=== PATIENT | male | born 1985 | race Two or more races ===

== ENCOUNTER 2021-09-15 21:22 | Emergency (ER) | payer OTHER ==
[2021-09-15 21:40] VITALS: BP 117/80; PULSE 87; TEMP 97.8; BMI 28.5
== END 2021-09-15 22:05 | disposition home or self-care (01) ==
LOC: JER 21:22
DX: R43.8 Other disturbances of smell and taste (principal); Z11.52 Encounter for screening for COVID-19
CPT/HCPCS: 99283-25; C9803; U0003; U0005